=== PATIENT | male | born 1995 | race Caucasian/White ===

== ENCOUNTER 2019-10-18 17:38 | Emergency (ER) | payer OTHER ==
[~2019-10-18] VITALS: Ht 188 cm; Wt 71.7 kg
[2019-10-18 17:42] VITALS: BP_SYST 134
[2019-10-18 18:11] VITALS: BP_SYST 134
== END 2019-10-18 18:11 | disposition home or self-care (01) ==
LOC: SED 17:38
DX: J02.9 Acute pharyngitis, unspecified (principal); R05 Cough; F12.90 Cannabis use, unspecified, uncomplicated
CPT/HCPCS: 99283